=== PATIENT | male | born 1945 | race Caucasian/White ===

== ENCOUNTER 2017-07-03 09:21 | Outpatient (CLI) | payer MEDICARE, BC ==
--- NOTE | 2017-07-03 10:24 | RAD ---
THREE VIEWS CERVICAL SPINE: Comparison: None. History: Cervical spine pain. FINDINGS: Three views of the cervical spine shows intervertebral disc space narrowing throughout the cervical s pine with small surrounding osteophytes. The vertebral bodies demonstrate a normal alignment without fracture or subluxation. No prevertebral soft tissue swelling is seen. IMPRESSION: Degenerative changes of the cervical spine without acute osseous abnormality. POS: [facility]AKSHA
== END 2017-07-03 09:22 | disposition home or self-care (01) ==
LOC: RAD-FRANK 09:21
PROVIDERS: ATTEND Internal Medicine
DX: M54.2 Cervicalgia (principal); G89.29 Other chronic pain; M47.892 Other spondylosis, cervical region
CPT/HCPCS: 72040